=== PATIENT | female | born 1980 | race Caucasian/White ===

== ENCOUNTER 2017-10-02 00:03 | Inpatient (IN) | payer MEDICAID ==
[~2017-10-02] VITALS: Ht 154.9 cm; Wt 95.9 kg
[2017-10-02 00:11] VITALS: BP 131/74
--- NOTE | 2017-10-02 00:21 | NUR ---
PT AMBULATED TO ER BED 01
--- NOTE | 2017-10-02 00:25 | NUR ---
PATIENT PRESENTS TO ED WITH LOWER BACK PAIN X1 WEEK. PT DENIES N/V/D; SKIN IS PINK/WARM/DRY; AAOX4 WITH EVEN AND STEADY GAIT; LUNGS CLEAR BL; HR EVEN AND REGULAR; PT DENIES ANY FEVER, CP, SOB, OR COUGH AT THIS TIME; PATIENT STATES PAIN OF 9/10 AT THIS TIME; VSS; PATIENT POSITIONED FOR COMFORT; HOB ELEVATED; BEDRAILS UP X1; BED DOWN. ER MD MADE AWARE OF PT STATUS.
[2017-10-02] MEDS ORDERED: KETOROLAC 60 MG/2 ML VIAL IM ONE (00:50)
[2017-10-02 01:16] LABS: APPEARANCE,URINE HAZY (CLEAR); BILIRUBIN,URINE 1+ (NEGATIVE); BLOOD, URINE 2+ (NEGATIVE); COLOR,URINE YELLOW (YELLOW); LEUKOCYTE ESTERASE ,URINE TRACE (NEGATIVE); NITRITE, URINE NEGATIVE (NEGATIVE); PH,URINE 5.5 (5.0-9.0); UGLUCOSE NEGATIVE (NEGATIVE)
[2017-10-02 01:30] LABS: BASOPHILS # (AUTO) 0.1 K/uL (0.00-0.22); BASOPHILS % (AUTO) 0.8 % (0.0-2.0); EOSINOPHILS # (AUTO) 0.6 K/uL (0-0.4); EOSINOPHILS % (AUTO) 7.3 % (0.0-4.0); HEMATOCRIT 39.4 % (36-48); LYMPHOCYTES # (AUTO) 2.5 K/uL (2.5-16.5); LYMPHOCYTES % (AUTO) 30.8 % (20.5-51.1); MEAN CORPUSCULAR HEMOGLOBIN 27 pg (27-31); MEAN CORPUSCULAR HGB CONC 33 g/dL (33-37); MEAN CORPUSCULAR VOLUME 82.8 fL (80-94); MONOCYTES # (AUTO) 0.6 K/uL (0.8-1.0); MONOCYTES % (AUTO) 6.9 % (1.7-9.3); NEUTROPHILS # (AUTO) 4.4 K/uL (1.8-7.7); NEUTROPHILS % (AUTO) 54.2 % (42.2-75.2); PLATELET COUNT (AUTO) 463 K/uL (140-450); RED BLOOD CELL COUNT(AUTO) 4.76 MIL/uL (4.20-5.40); RED CELL DISTRIBUTION WIDTH 14.3 % (11.6-13.7); WHITE BLOOD COUNT (AUTO) 8.1 K/uL (4.8-10.8)
[2017-10-02 01:35] LABS: RBC,URINE 0-5 (RARE) /HPF (0-5); WBC,URINE 0-5 (RARE) /HPF (0-5)
[2017-10-02 01:47] LABS: CARBON DIOXIDE 27.1 mmol/L (21-32); CREATININE 0.9 mg/dL (0.6-1.3); POTASSIUM 3.1 mmol/L (3.5-5.1)
[2017-10-02 01:50] LABS: PROTHROMBIN TIME 10.6 secs (10.8-13.4)
[2017-10-02 01:53] LABS: ALBUMIN 3.1 g/dL (3.4-5.0); TOTAL BILIRUBIN 0.3 mg/dL (0.0-1.0)
--- NOTE | 2017-10-02 02:20 | NUR ---
PATIENT TO CT
[2017-10-02] MEDS ORDERED: KETOROLAC 15 MG/ML VIAL IVP PRN (02:25)
[2017-10-02] MEDS ORDERED: ACETAMINOPHEN 325 MG TAB PO PRN (02:25)
[2017-10-02 02:51] LABS: BARBITURATE, URINE NEG. ng/ml (NEG <=200); BENZODIAZEPINE, URINE NEG. ng/mL (NEG <=200); CANNABINOID, URINE NEG. ng/mL (NEG <=50); COCAINE, URINE NEG. ng/mL (NEG <=300); OPIATE, URINE NEG. ng/mL (NEG <=2000); PHENCYCLIDINE SCREEN,URINE NEG. ng/mL (NEG <=25)
[2017-10-02] MEDS: NACL 0.9% 1,000 ML IV SCH ×2 (03:04→17:33)
[2017-10-02 03:07] LABS: CHOL/HDL RATIO 4.4 (1-4.5); FREE T4 (FREE THYROXINE) 1.03 ng/dL (0.76-1.46); MAGNESIUM 2.1 mg/dL (1.8-2.4); PHOSPHORUS 4.4 mg/dL (2.5-4.9); THYROID STIMULATING HORMONE 1.88 uIU/mL (0.34-3.74)
--- NOTE | 2017-10-02 03:07 | NUR ---
Patient appears to be resting comfortably in bed. Vital Signs within normal limits. Respirations even and unlabored.
[2017-10-02 04:30] VITALS: BP 101/62
--- NOTE | 2017-10-02 04:30 | NUR ---
ADMITTED PATIENT TO THE TELE UNIT, PATIENT AWAKE ALERT ORIENTED X4, NO S/S OF DISTRESS NOTED, RESPIRATION EVEN AND UNLABORED, ON ROOM AIR. PATIENT SPEAKS CITIZEN OF [place], BUT REFUSED TO USE BLUE PHONE AND STATED," MY DAUGHTER CAN TRANSLATE FOR ME." TELE MONITOR PLACED ON PATIENT, IV PATENT AND INTACT, PLAN OF CARE DISCUSSED, PATIENT VERBALIZED UNDERSTANDING. CALL LIGHT WITHIN REACH, SAFETY MEASURE ENSURED, WILL CONTINUE TO MONITOR.
--- NOTE | 2017-10-02 06:49 | NUR ---
PATIENT HAS BEEN SCREENED AND CATEGORIZED MODERATE NUTRITION RISK. PATIENT WILL BE SEEN WITHIN 3-5 DAYS OF ADMISSION. 10/04/17-10/06/[address]
--- NOTE | 2017-10-02 07:26 | NUR ---
ENDORSED PLAN OF CARE TO DAY SHIFT RN, PATIENT RESTING IN BED, IN STABLE CONDITION.
--- NOTE | 2017-10-02 07:27 | NUR ---
RECEIVED REPORT FROM PM NURSE AT BEDSIDE. PT SLEEPING, NO SIGN OF DISTRESS. ALL SAFETY MEASURE IN PLACE . WILL CONTINUE TO MONITOR PT.
[2017-10-02 08:00] VITALS: BP 100/69
[2017-10-02] MEDS: DOCUSATE SODIUM 100 MG GELCAP PO SCH ×2 (09:23→21:11)
[2017-10-02] MEDS ORDERED: FUROSEMIDE 40 MG/4 ML VIAL IVP SCH (09:30)
[2017-10-02] MEDS ORDERED: POTASSIUM CHLORIDE 10 MEQ TABER PO SCH (09:31)
[2017-10-02] MEDS: LEVOFLOXACIN 750 MG/D5W PREMIX 150 ML IV SCH (10:05)
--- NOTE | 2017-10-02 11:07 | NUR ---
CALLED CT TO INFORM THAT CONSENT FOR CT WITH CONTRAST IS READY. ABX INFUSING , WILL BE HERE IN 30 MINUTES. PT AT BEDSIDE. LYING ON BED. NO SIGN OF DISTRESS . WILL CONTINUE TO MONITOR.
--- NOTE | 2017-10-02 11:44 | NUR ---
PAGED DR MISHRA ABOUT PT CT REPORT REGARING THORACENTESIS PROCEDURE. WAITING RECEIVER STOCKER FROM ,
--- NOTE | 2017-10-02 11:47 | NUR ---
PT WENT FOR CT CHEST WITH CONTRAST WITH TECH ON WHEEL CHAIR. DISCONNECTED HER IV.
[2017-10-02 12:00] VITALS: BP 113/67
--- NOTE | 2017-10-02 12:10 | NUR ---
PAGED DR MISHRA AGAIN TO INFORM ABOUT THE THORACENTESIS PROCEDURE CT RESULT.
--- NOTE | 2017-10-02 12:17 | NUR ---
RESIDENT INFORMED ABOUT NOT ENOUGH FLUID FOR THORACENTESIS PROCEDURE.
--- NOTE | 2017-10-02 13:00 | NUR ---
CHECKED ON PT. PT LYING BACK ON BED, LOOKING AT PHONE. NO DISTRESSED NOTED. PT STABLE. ALL SAFETY MEASURE IN PL;[place]. WILL CONTINUE TO MONITOR.
[2017-10-02 15:35] LABS: ALBUMIN 2.8 g/dL (3.4-5.0); ANION GAP 12.1 (8-16); ASPARTATE AMINOTRANSFERASE 20 U/L (15-37); CARBON DIOXIDE 27.8 mmol/L (21-32); CHLORIDE 101 mmol/L (98-107); CREATININE 0.8 mg/dL (0.6-1.3); GFR ARICAN-AMERICAN 105 mL/min (>90); GLUCOSE 90 mg/dL (74-106); POTASSIUM 3.9 mmol/L (3.5-5.1); SODIUM SERUM 137 mmol/L (136-145); TOTAL BILIRUBIN 0.4 mg/dL (0.0-1.0); UREA NITROGEN, BLOOD 10 mg/dL (7-18)
[2017-10-02 16:00] VITALS: BP 106/47
--- NOTE | 2017-10-02 16:00 | NUR ---
PT IV INFUSING WELL. PT HAS NO PAIN, NO DISTRESS NOTED. WILL CONTINUE TO MONITOR PT.
--- NOTE | 2017-10-02 19:30 | NUR ---
ENDORSED PT TO PM NURSE FOR CONTINUITY OF CARE. PT FAMILY AT BEDSIDE. PT STABLE .
--- NOTE | 2017-10-02 19:35 | NUR ---
RECEIVED REPORT FROM DAY SHIFT, PATIENT RESTING IN BED, NO S/S OF DISTRESS NOTED. IV PATENT AND INTACT, INFUSING NS AT 80ML/HR. PLAN OF CARE DISCUSSED, PATIENT VERBALIZED UNDERSTANDING, CALL LIGHT WITHIN REACH, SAFETY MEASURE ENSURED, WILL CONTINUE TO MONITOR.
[2017-10-02 20:00] VITALS: BP 118/78
--- NOTE | 2017-10-02 21:20 | NUR ---
BACK PAIN 6/10, PAIN MEDICATION GIVEN ORDERED. PATIENT TOLERATED WELL. NO S/S OF DISTRESS NOTED, RESPIRATION EVEN AND UNLABORED, CALL LIGHT WITHIN REACH, SAFETY MEASURE ENSURED, WILL CONTINUE TO MONITOR.
--- NOTE | 2017-10-02 23:50 | NUR ---
PATIENT WAS SLEEPING, EASY TO AROUSE, VITAL SIGNS STABLE, NO S/S OF DISTRESS NOTED, CALL LIGHT WITHIN REACH, SAFETY MEASURE ENSURED, WILL CONTINUE TO MONITOR.
[2017-10-03] VITALS: BP 117/75
--- NOTE | 2017-10-03 03:13 | NUR ---
PATIENT IS SLEEPING, NO S/S OF DISTRESS NOTED, RESPIRATION EVEN AND UNLABORED, ON ROOM AIR. CALL LIGHT WITHIN REACH, SAFETY MEASURE ENSURED, WILL CONTINUE TO MONITOR.
[2017-10-03 04:00] VITALS: BP 101/55
[2017-10-03] MEDS: NACL 0.9% 1,000 ML IV SCH ×2 (05:14→18:46)
--- NOTE | 2017-10-03 06:10 | NUR ---
NO CHANGE IN CONDITION, PATIENT IS SLEEPING, NO S/S OF DISTRESS NOTED, RESPIRATION EVEN AND UNLABORED, ON ROOM AIR. CALL LIGHT WITHIN REACH, SAFETY MEASURE ENSURED, WILL CONTINUE TO MONITOR.
[2017-10-03 07:26] LABS: BASOPHILS % (AUTO) 0.6 % (0.0-2.0); EOSINOPHILS # (AUTO) 0.5 K/uL (0-0.4); EOSINOPHILS % (AUTO) 6.2 % (0.0-4.0); HEMATOCRIT 34.9 % (36-48); HEMOGLOBIN 11.6 g/dL (12.0-16.0); LYMPHOCYTES # (AUTO) 2.1 K/uL (2.5-16.5); LYMPHOCYTES % (AUTO) 26.8 % (20.5-51.1); MEAN CORPUSCULAR HEMOGLOBIN 27 pg (27-31); MEAN CORPUSCULAR HGB CONC 33 g/dL (33-37); MEAN CORPUSCULAR VOLUME 82.5 fL (80-94); MONOCYTES # (AUTO) 0.5 K/uL (0.8-1.0); MONOCYTES % (AUTO) 6.9 % (1.7-9.3); NEUTROPHILS # (AUTO) 4.6 K/uL (1.8-7.7); NEUTROPHILS % (AUTO) 59.5 % (42.2-75.2); PLATELET COUNT (AUTO) 399 K/uL (140-450); RED BLOOD CELL COUNT(AUTO) 4.23 MIL/uL (4.20-5.40); RED CELL DISTRIBUTION WIDTH 13.9 % (11.6-13.7); WHITE BLOOD COUNT (AUTO) 7.7 K/uL (4.8-10.8)
[2017-10-03 07:33] LABS: ALBUMIN 2.5 g/dL (3.4-5.0); ANION GAP 10.9 (8-16); CARBON DIOXIDE 25.5 mmol/L (21-32); CREATININE 0.8 mg/dL (0.6-1.3); PHOSPHORUS 3.8 mg/dL (2.5-4.9); POTASSIUM 3.4 mmol/L (3.5-5.1); TOTAL BILIRUBIN 0.3 mg/dL (0.0-1.0)
--- NOTE | 2017-10-03 07:33 | NUR ---
ENDORSED PLAN OF CARE TO DAY SHIFT, PATIENT RESTING IN BED, IN STABLE CONDITION.
--- NOTE | 2017-10-03 07:34 | NUR ---
RECEIVED REPORT FROM NURSE. PT SLEEPING AT THIS TIME. UPDATED BOARD. IV SITE PATENT. IV INFUSING WELL. CALL LIGHT WITHIN REACH WILL CONTINUE TO MONITOR PT.
[2017-10-03 07:55] LABS: PROTHROMBIN TIME 10.3 secs (10.8-13.4)
[2017-10-03 08:00] VITALS: BP 118/63
[2017-10-03] MEDS: DOCUSATE SODIUM 100 MG GELCAP PO SCH ×2 (09:56→21:28)
[2017-10-03] MEDS ORDERED: POTASSIUM CHLORIDE 10 MEQ TABER PO SCH (10:01)
[2017-10-03] MEDS: LEVOFLOXACIN 750 MG/D5W PREMIX 150 ML IV SCH (10:02)
--- NOTE | 2017-10-03 10:10 | NUR ---
ADMINISTERED MEDS ORDERED. PT TOLERATED WELL. NO SIGN OF DISTRESS. PT SAYS SHE HAD BM TODAY. LEVOFLOX IVPB INFUSING , PT TOLERATING WELL. CALL LIGHT WITHIN REACH. WILL CONTINUE TO MONITOR PT.
--- NOTE | 2017-10-03 11:45 | NUR ---
CHECKED ON PT. PT SAYS HAS NO APPETITE. ASKED IF SHE LIKE OTHER FOOD. SAYS OK FOR NOW. ALL SAFETY MEASURE IN PLACE . WILL CONTINUE TO MONITOR PT.
[2017-10-03 12:00] VITALS: BP 113/65
--- NOTE | 2017-10-03 13:00 | NUR ---
CHECKED ON PT. PT SLEEPING AT THIS TIME. NO SIGN OF DISTRESS. WILL CONTINUE TO MONITOR PT.
[2017-10-03 16:04] VITALS: BP 107/62
--- NOTE | 2017-10-03 18:30 | NUR ---
ADMINISTERED 0.9 NS ORDERED. FAMILY AT BEDSIDE. PT HAS NOT EATEN DINNER YET. NO SIGN OF DISTRESS. ALL SAFETY MEASURE IN PLACE. WILL CONTINUE TO MONITOR PT.
--- NOTE | 2017-10-03 19:10 | NUR ---
ENDORSED PT TO PM NURSE FOR THE CONTINUITY OF CARE AT BEDSIDE. PT WITH FAMILY MEMBER. IV INFUSING WELL. NO SIGN OF DISTRESS. PT STABLE AT THIS TIME.
--- NOTE | 2017-10-03 19:20 | NUR ---
RECEIVED REPORT FROM DAY SHIFT, PATIENT RESTING IN BED, NO S/S OF DISTRESS NOTED. IV PATENT AND INTACT, INFUSING NS AT 80ML/HR. NOTED DINNER ON THE TABLE, ASKED PATIENT IF SHE NEED A SANDWICH, BUT PATIENT SAID, " I ATE [employer]BUR[employer]." PLAN OF CARE DISCUSSED, PATIENT VERBALIZED UNDERSTANDING, CALL LIGHT WITHIN REACH, SAFETY MEASURE ENSURED, WILL CONTINUE TO MONITOR
[2017-10-03 19:59] VITALS: BP 126/78
--- NOTE | 2017-10-03 22:44 | NUR ---
PATIENT RESTING IN BED, WATCHING TV ON CELLPHONE, NO S/S OF DISTRESS NOTED, RESPIRATION EVEN AND UNLABORED, ON ROOM AIR. CALL LIGHT WITHIN REACH, SAFETY MEASURE ENSURED, WILL CONTINUE TO MONITOR.
[2017-10-04] VITALS: BP 123/61
--- NOTE | 2017-10-04 00:45 | NUR ---
VITAL SIGNS STABLE, NO S/S OF DISTRESS NOTED, RESPIRATION EVEN AND UNLABORED, ON ROOM AIR. CALL LIGHT WITHIN REACH, SAFETY MEASURE ENSURED, WILL CONTINUE TO MONITOR.
--- NOTE | 2017-10-04 02:48 | NUR ---
PATIENT IS SLEEPING, NO S/S OF DISTRESS NOTED, RESPIRATION EVEN AND UNLABORED, ON ROOM AIR. CALL LIGHT WITHIN REACH, SAFETY MEASURE ENSURED, WILL CONTINUE TO MONITOR.
[2017-10-04 04:00] VITALS: BP 99/41
--- NOTE | 2017-10-04 04:15 | NUR ---
PATIENT WAS SLEEPING, BUT EASY TO AROUSE, VITAL SIGNS STABLE, NO S/S OF DISTRESS NOTED, RESPIRATION EVEN AND UNLABORED, ON ROOM AIR. CALL LIGHT WITHIN REACH, SAFETY MEASURE ENSURED, WILL CONTINUE TO MONITOR.
[2017-10-04 06:22] LABS: BASOPHILS % (AUTO) 0.5 % (0.0-2.0); EOSINOPHILS # (AUTO) 0.5 K/uL (0-0.4); EOSINOPHILS % (AUTO) 7.2 % (0.0-4.0); HEMATOCRIT 34.9 % (36-48); HEMOGLOBIN 11.6 g/dL (12.0-16.0); LYMPHOCYTES % (AUTO) 30.8 % (20.5-51.1); MEAN CORPUSCULAR HEMOGLOBIN 27 pg (27-31); MEAN CORPUSCULAR HGB CONC 33 g/dL (33-37); MEAN CORPUSCULAR VOLUME 82.4 fL (80-94); MONOCYTES # (AUTO) 0.6 K/uL (0.8-1.0); MONOCYTES % (AUTO) 9.2 % (1.7-9.3); NEUTROPHILS # (AUTO) 3.4 K/uL (1.8-7.7); NEUTROPHILS % (AUTO) 52.3 % (42.2-75.2); PLATELET COUNT (AUTO) 395 K/uL (140-450); RED BLOOD CELL COUNT(AUTO) 4.24 MIL/uL (4.20-5.40); RED CELL DISTRIBUTION WIDTH 13.8 % (11.6-13.7); WHITE BLOOD COUNT (AUTO) 6.6 K/uL (4.8-10.8)
[2017-10-04] MEDS: NACL 0.9% 1,000 ML IV SCH ×2 (06:32→06:41)
--- NOTE | 2017-10-04 06:42 | NUR ---
NEW NORMAL SALINE STARTED, PATIENT IS SLEEPING, NO S/S OF DISTRESS NOTED, RESPIRATION EVEN AND UNLABORED, WILL CONTINUE TO MONITOR.
[2017-10-04 06:47] LABS: ALBUMIN 2.6 g/dL (3.4-5.0); ANION GAP 10.5 (8-16); CARBON DIOXIDE 23.9 mmol/L (21-32); CREATININE 0.8 mg/dL (0.6-1.3); MAGNESIUM 2.1 mg/dL (1.8-2.4); PHOSPHORUS 3.8 mg/dL (2.5-4.9); POTASSIUM 3.4 mmol/L (3.5-5.1); PROTHROMBIN TIME 10.7 secs (10.8-13.4); TOTAL BILIRUBIN 0.4 mg/dL (0.0-1.0)
--- NOTE | 2017-10-04 07:15 | NUR ---
RECEIVED PATIENT REPORT AT BEDSIDE. PATIENT ASLEEP BUT AROUSABLE. NO S/S OF DISTRESS. NO C/O PAIN AT THIS TIME. PATIENT ON TELE MONITORING. BED LOWERED WITH CALL LIGHT WITHIN REACH. WILL CONTINUE TO MONITOR.
--- NOTE | 2017-10-04 07:30 | NUR ---
ENDORSED PLAN OF CARE TO DAY SHIFT, PATIENT RESTING IN BED, IN STABLE CONDITION.
[2017-10-04 08:00] VITALS: BP 113/63
[2017-10-04] MEDS ORDERED: POTASSIUM CHLORIDE 10 MEQ TABER PO SCH (09:06)
[2017-10-04] MEDS: LEVOFLOXACIN 750 MG/D5W PREMIX 150 ML IV SCH (09:59)
[2017-10-04] MEDS: DOCUSATE SODIUM 100 MG GELCAP PO SCH (10:00)
--- NOTE | 2017-10-04 10:31 | NUR ---
PATIENT HAS BEEN SCREENED AND CATEGORIZED LOW NUTRITION RISK. PATIENT WILL BE SEEN WITHIN 7 DAYS OF ADMISSION. 10/06/[address]
[2017-10-04 12:00] VITALS: BP 98/56
--- NOTE | 2017-10-04 16:41 | NUR ---
Apartment Property Manager Note: I met with patient at bedside. Patient French speaking. She reported she prefers to be discharged home and be referred to a formerly [facility] hospital for outpatient services/evaluation/treatment than to be transfer to another acute hospital for higher level of care, director of case management/psychosocial rehabilitation counselor Krista salazar. I provided patient with information of process of [facility] Outpatient Referral and verified her home address and phone number listed on face sheet. I informed her a referral will be completed and faxed to [facility]. I explained to her [facility] ([facility]) will review her information and provide her with appointment information. She verbalized understanding. I completed and faxed [facility] Outpatient Referral, phone number , fax .
[2017-10-04] MEDS ORDERED: IBUP-2217 PO (16:49)
[2017-10-04] MEDS ORDERED: IBUPROFEN 800 MG TAB PO PRN (16:50)
[2017-10-04 17:00] VITALS: BP 127/77
[2017-10-06 06:13] LABS: ANTI DOUBLE STRANDED DNA AB <1 IU/mL (0-9); ANTI-NUCLEAR ANTIBODY,DIRECT Negative (Negative)
== END 2017-10-04 17:20 | disposition home or self-care (01) | DRG 139 ==
LOC: MED 00:03 → MTU 02:24 → MMU 04:04
PROVIDERS: ADMIT General Practice; ATTEND General Practice
DX: J18.9 Pneumonia, unspecified organism (principal); E43 Unspecified severe protein-calorie malnutrition; J90 Pleural effusion, not elsewhere classified; E87.1 Hypo-osmolality and hyponatremia; E66.01 Morbid (severe) obesity due to excess calories; E87.6 Hypokalemia; E78.5 Hyperlipidemia, unspecified; Z68.39 Body mass index [BMI] 39.0-39.9, adult; Z87.440 Personal history of urinary (tract) infections
CPT/HCPCS: 36415; 71260; 74022; 76604; 80053; 80305; 81001; 81025; 82150; 82164; 82945; 83036; 83605; 83615; 83690; 83735; 83880; 84100; 84157; 84439; 84443; 84484; 85025; 85610; 85651; 85730; 86038; 86430; 87040; 87081; 87086; 89051; 93005; 96372; 99285; J1885; J1940; J1956; J7030; Q0092; Q9967

== ENCOUNTER 2017-10-17 22:39 | Emergency (ER) | payer MEDICAID ==
[~2017-10-17] VITALS: Ht 154.9 cm; Wt 90.7 kg
[~2017-10-17 22:39] MED LIST: IBUP-2217 PO
[2017-10-17 22:55] VITALS: BP 117/76
--- NOTE | 2017-10-17 22:57 | NUR ---
TO BED # 11 AMBULATORY, REPORT GIVEN TO NELSON CONROY.
--- NOTE | 2017-10-17 23:00 | NUR ---
37/F CAME IN ED WITH FAMILY, C/O CONSTANT SHARP R LOWER BACK PAIN, NONRADIATING, X3 DAYS. PT DENIES TRAUMA. PT DENIES FEVER, CP, SOB, COUGH, N/V/D, DYSURIA; SKIN IS INTACT, PINK/WARM/DRY; AAOX4, PERRL, WITH EVEN AND STEADY GAIT; LUNGS CLEAR BL, BREATHING UNLABORED; HR EVEN AND REGULAR, BL PERIPHERAL PULSES PRESENT; BS ACTIVE X4, NO TENDERNESS TO PALPATION; VSS; PATIENT POSITIONED FOR COMFORT; HOB ELEVATED; BEDRAILS UP X2; BED DOWN.
[2017-10-18] MEDS ORDERED: KETOROLAC 30 MG/ML VIAL IM ONE (00:40)
[2017-10-18 02:45] VITALS: BP 131/80
--- NOTE | 2017-10-18 02:45 | NUR ---
Patient discharged with v/s stable. Written and verbal after care instructions given and explained. Patient alert, oriented and verbalized understanding of instructions. Ambulatory with steady gait. All questions addressed prior to discharge. ID band removed. Patient advised to follow up with PMD. Rx of NARCO, AUGMENTIN, NAPROSYN given. Patient educated on indication of medication including possible reaction and side effects. Opportunity to ask questions provided and answered.
== END 2017-10-18 02:45 | disposition home or self-care (01) ==
LOC: MED 22:39
DX: R09.1 Pleurisy (principal); Z79.899 Other long term (current) drug therapy
CPT/HCPCS: 71046; 81002; 81025; 96372; 99284; J1885; Q0092; 99283

== ENCOUNTER 2017-12-12 19:20 | Emergency (ER) | payer MEDICAID ==
[~2017-12-12] VITALS: Ht 154.9 cm; Wt 89.8 kg
[2017-12-12 19:36] VITALS: BP 109/66
--- NOTE | 2017-12-12 19:39 | NUR ---
TO BED #3 AMBULATORY, REPORT GIVEN TO EDGAR CONROY
--- NOTE | 2017-12-12 19:50 | NUR ---
Patient presents to ED with complaints of right lateral side pain for the past three days. Patient states she was admitted to [facility] and had a chest tube removed about 3 weeks ago. Pt states she did not have pain when it was removed and had a sudden onset of pain 3 days ago. Incision site appears dry, clear, no redness, no drainage noted. Lungs clear bilaterally in all x5 lobes. Pt denies N/V/D, denies fever or chills. Pt reports swelling to incision site, tender to palpation. Pt in a gown, provided with warm blanket, pillow offered for comfort. Pt placed in position of comfort. VSS. Awaiting exam from ERMD.
[2017-12-12] MEDS ORDERED: KETOROLAC 60 MG/2 ML VIAL IM ONE (20:35)
--- NOTE | 2017-12-12 20:57 | NUR ---
Dr. Osei evaluating patient at bedside.
[2017-12-12] MEDS ORDERED: MORPHINE SULFATE 4 MG/ML SYR IVP ONE (21:05)
[2017-12-12] MEDS ORDERED: MORPHINE SULFATE 4 MG/ML SYR IM ONE (21:05)
--- NOTE | 2017-12-12 21:10 | NUR ---
Shlomo barillas in [facility] - 12/12/[address] Osei evaluating patient at bedside.
--- NOTE | 2017-12-12 21:10 | NUR ---
X-Ray at bedside.
--- NOTE | 2017-12-12 21:59 | NUR ---
Patient is resting with eyes closed and appears comfortably in bed. Family at the bedside. VSS. NAD noted. Pt awaiting pending results. Pain improved.
[2017-12-12 22:15] VITALS: BP 109/58
--- NOTE | 2017-12-12 22:15 | NUR ---
IV removed, catheter intact and site benign. Applied folded 4x4 gauze and tape to stop bleeding.
--- NOTE | 2017-12-12 22:15 | NUR ---
Patient discharged with v/s stable. Written and verbal after care instructions given and explained. Patient alert, oriented and verbalized understanding of instructions. Ambulatory with steady gait. All questions addressed prior to discharge. ID band removed. Patient advised to follow up with PMD. Rx of [place] 5mg-325mg, Cipro 500mg, Azithromycin given. Patient educated on indication of medication including possible reaction and side effects. Opportunity to ask questions provided and answered.
== END 2017-12-12 22:15 | disposition home or self-care (01) ==
LOC: MED 19:20
DX: N39.0 Urinary tract infection, site not specified (principal); J18.9 Pneumonia, unspecified organism; Z79.899 Other long term (current) drug therapy
CPT/HCPCS: 71045; 81002; 81025; 96372; 96374; 99284; J1885; J2270; Q0092

== ENCOUNTER 2017-12-13 23:59 | Emergency (ER) | payer MEDICAID ==
[~2017-12-13] VITALS: Ht 154.9 cm; Wt 89.8 kg
[2017-12-14 00:03] VITALS: BP 109/75
--- NOTE | 2017-12-14 00:09 | NUR ---
PT AMBULATED TO ROOM 7 WITH VSS.
--- NOTE | 2017-12-14 00:33 | NUR ---
37YO F TO ER W/C/O RIGHT SIDED RIB PAIN SINCE 10 AM. PT STATES RIGHT LUNG DRAINED AT [facility] X3 WEEKS AGO. PT CONTINES TO HAVE CONSTANT STABBING SEVERE 10/10 PAIN TO RIGHT RIBS. PT WAS SEEN HERE AT [facility]. PERSCRIBED PAIN MEDICATIONS NOT HELPFUL. NO SOB OR DYSPNEA AT THIS TIME. PT DENIES ANY N/V/D, CP, SOB, COUGH OR FEVER AT THIS TIME. WILL CONTINUE TO MONITOR. ER MADE AWARE
--- NOTE | 2017-12-14 00:50 | NUR ---
Patient being evaluated by physician at bedside.
[2017-12-14] MEDS ORDERED: HYDROcodone/APAP 5/325 MG 1 TAB TAB PO ONE (01:25)
[2017-12-14] MEDS ORDERED: KETOROLAC 30 MG/ML VIAL IM ONE (01:25)
--- NOTE | 2017-12-14 01:37 | NUR ---
TORADOL ORDERED IM, DR BARRERA STATES OKAY TO GIVE IV PUSH.
--- NOTE | 2017-12-14 02:29 | NUR ---
Patient discharged with v/s stable. Written and verbal after care instructions given and explained. Patient alert, oriented and verbalized understanding of instructions. Ambulatory with steady gait. All questions addressed prior to discharge. ID band removed. Patient advised to follow up with PMD. Rx of LIDODERM, NAPROSYN given. Patient educated on indication of medication including possible reaction and side effects. Opportunity to ask questions provided and answered.
[2017-12-14 02:30] VITALS: BP 112/66
== END 2017-12-14 02:30 | disposition home or self-care (01) ==
LOC: MED 23:59
DX: R09.1 Pleurisy (principal)
CPT/HCPCS: 71045; 81002; 81025; 96374; 99284; J1885; Q0092

== ENCOUNTER 2018-07-07 15:23 | Emergency (ER) | payer MEDICAID ==
[~2018-07-07] VITALS: Ht 154.9 cm; Wt 102.1 kg
[2018-07-07 15:30] VITALS: BP 120/94
--- NOTE | 2018-07-07 15:39 | NUR ---
PT AMBULATED TO BED 9
--- NOTE | 2018-07-07 15:39 | NUR ---
38 Y F BIB SELF C/O RIGHT SIDED BACK PAIN THAT RADIATES TO RIGHT RIBCAGE X 2 DAYS AGO PT REPORTS SHE HAD AN "OPERATION ON HER RIGHT LUNG" 10/2017. LUNG SOUNDS CLEAR BILATERALLY 8/10 PAIN, CONSTANT, SHARP PAIN. PT DOES REPORT SOME COUGH X 1 WEEK. HX: LUNG OPERATION RX: DENIES
[2018-07-07 17:45] VITALS: BP 125/72
--- NOTE | 2018-07-07 17:45 | NUR ---
Patient discharged with v/s stable. Written and verbal after care instructions given and explained. Patient alert, oriented and verbalized understanding of instructions. Ambulatory with steady gait. All questions addressed prior to discharge. ID band removed. Patient advised to follow up with PMD. Rx of ALBUTEROL, AZITHROMYCIN, MOTRIN given. Patient educated on indication of medication including possible reaction and side effects. Opportunity to ask questions provided and answered.
== END 2018-07-07 17:45 | disposition home or self-care (01) ==
LOC: MED 15:23
DX: J98.01 Acute bronchospasm (principal); R10.9 Unspecified abdominal pain; Z98.890 Other specified postprocedural states
CPT/HCPCS: 71046; 99283

== ENCOUNTER 2019-05-12 18:18 | Emergency (ER) | payer MEDICAID ==
[~2019-05-12] VITALS: Ht 152.4 cm; Wt 101.6 kg
[2019-05-12 18:26] VITALS: BP 118/86
--- NOTE | 2019-05-12 18:28 | NUR ---
AMBULATES BACK TO THE LOBBY
--- NOTE | 2019-05-12 19:01 | NUR ---
PT AMBULATED TO ER CHC
--- NOTE | 2019-05-12 19:45 | NUR ---
39 Y/O FEMALE PRESNTS TO ED, C/O RIGHT EYE PAIN X1 WEEK. PT STATES PAIN IS 8/10. PT DENIES ANY TRAUMA. PT STATES ITCHING AND DISCOMFORT ALONG WITH BLURRY VISION ON AFFECTED EYE. PT STATES HAVING CLEAR TEARS. PT ABLE TO AMBULATE WITH STEADY GAIT. PT VSS ERMD AWARE. WILL CONTINUE TO MONITOR.
[2019-05-12] MEDS ORDERED: FLUORESCEIN OPTH STRIP 1 MG ONE (19:47)
[2019-05-12] MEDS: TETRACAINE HCL/PF 0.5% OPTH 4 ML BTL OP ONE (19:52)
--- NOTE | 2019-05-12 20:17 | NUR ---
PT DISCHARGED WITH PAPERWORK. EDUCATED PT REGARDING MEDICATIONS AND D/C INSTRUCTIONS. PT VERBALIZED UNDERSTANDING OF TEACHING. TOLD PT TO FOLLOW UP WITH PCP AND WHEN TO RETURN TO ED. PT AT STABLE CONDITION. AMBULATES WITH STEADY GAIT. ALL QUESTIONS ANSWERED.
[2019-05-12 20:18] VITALS: BP 118/86
== END 2019-05-12 20:17 | disposition home or self-care (01) ==
LOC: MED 18:18
DX: S05.01XA Injury of conjunctiva and corneal abrasion without foreign body, right eye, initial encounter (principal); H10.9 Unspecified conjunctivitis; Z79.1 Long term (current) use of non-steroidal anti-inflammatories (NSAID); X58.XXXA Exposure to other specified factors, initial encounter; Y92.89 Other specified places as the place of occurrence of the external cause; Y93.89 Activity, other specified; Y99.8 Other external cause status
CPT/HCPCS: 99283

== ENCOUNTER 2019-07-10 15:46 | Emergency (ER) | payer MEDICAID ==
[~2019-07-10] VITALS: Ht 154.9 cm; Wt 90.7 kg
[2019-07-10 16:15] VITALS: BP 129/94
[2019-07-10] MEDS ORDERED: ALBUTEROL SULFATE/IPRATROPIU 3 ML SOL IH ONE (16:20)
--- NOTE | 2019-07-10 16:31 | NUR ---
PT AMBULATED TO ER BED 09
--- NOTE | 2019-07-10 16:42 | NUR ---
Breathing treatment administered by respiratory therapist at bedside.
[2019-07-10] MEDS ORDERED: predniSONE 20 MG TAB PO ONE (16:55)
--- NOTE | 2019-07-10 16:57 | NUR ---
39 Y/O FEMALE C/O DRY COUGH FOR TWO WEEKS. DENIES SOB/CP. RESP EVEN AND UNLABORED. LUNG SOUNDS CLEAR IN BILAT LOBES. DENIES FEVER/CHILLS, N/V/D. CAP REFILL <3. SKIN WARM/DRY/IN TACT. BOWEL SOUNDS NORMO ACTIVE. PT REPORTS RIB PAIN ALSO STARTING WITH COUGH, 5/10. NO PMH NKA
[2019-07-10 17:03] VITALS: BP 129/94
--- NOTE | 2019-07-10 17:03 | NUR ---
Patient discharged with v/s stable. Written and verbal after care instructions given and explained. Patient alert, oriented and verbalized understanding of instructions. Ambulatory with steady gait. All questions addressed prior to discharge. ID band removed. Patient advised to follow up with PMD. Rx of ALBUTEROL, PREDNISONE, AEROCHAMBER given. Patient educated on indication of medication including possible reaction and side effects. Opportunity to ask questions provided and answered.
== END 2019-07-10 17:03 | disposition home or self-care (01) ==
LOC: MED 15:46
DX: J98.01 Acute bronchospasm (principal); J90 Pleural effusion, not elsewhere classified; J45.909 Unspecified asthma, uncomplicated; Z98.890 Other specified postprocedural states; Z79.899 Other long term (current) drug therapy
CPT/HCPCS: 71045; 99283; J7512; 94640; Q0092

== ENCOUNTER 2019-10-24 19:49 | Emergency (ER) | payer MEDICAID ==
[~2019-10-24] VITALS: Ht 154.9 cm; Wt 103.9 kg
[2019-10-24 19:56] VITALS: BP 117/85
--- NOTE | 2019-10-24 20:01 | NUR ---
pt triaged and sent back to bob
--- NOTE | 2019-10-25 00:10 | NUR ---
PT TAKEN TO CHAIR C. AMBULATED WITH STEADY GAIT.
--- NOTE | 2019-10-25 00:15 | NUR ---
PT 39 Y/O FEMALE BIB SELF FOR C/O WALLACE X 3 DAYS. PT AAO X4. PT STATES SHE HAS 9/10 WALLACE THAT IS UNRELIVED BY OTC MEDICATION. PT STATES PAIN IS SHARP, THROBBING, AND CONTINOUS. PT STATES SHE HAS BLURRED VISION AND DIZZYNESS. PERRL 4MM BILAT BRISK. FACE SYMMETRICAL. HAND SENIOR IT AUDITOR STRONG AND EQUAL BILAT. VISION ACUITY TEST PERFORMED. R EYE: 20/25, L EYE: 20/25, BOTH EYES: 20/20. BED LOCKED AND IN LOWEST POSTION. MEDHX: NONE ALLERGIES: NKA
--- NOTE | 2019-10-25 00:31 | NUR ---
Dr. Ferreira examining patient.
--- NOTE | 2019-10-25 00:36 | NUR ---
PT AMBULATED TO RESTROOM TO PROVIDE UA.
[2019-10-25] MEDS ORDERED: PROCHLORPERAZINE 10 MG/2 ML VIAL IVP ONE (00:40)
[2019-10-25] MEDS ORDERED: KETOROLAC 15 MG/ML VIAL IVP ONE (00:40)
[2019-10-25] MEDS ORDERED: NACL 0.9% 1,000 ML IV ONE (00:40)
--- NOTE | 2019-10-25 00:50 | NUR ---
IV PLACED IN R WRIST 24G. PT DENIES PAIN AT SITE. BLOOD RETURN NOTED.
--- NOTE | 2019-10-25 00:57 | NUR ---
0.9% NS 1L STARTED BOLUS. COMPAZINE 10MG IVP AND TORADOL 15 MG IVP GIVEN IN R WRIST. IV SITE PATENT. NO C/O PAIN OR SWELLING AT SITE. PAIN CURETNLY 01/10 FOR WALLACE.
--- NOTE | 2019-10-25 01:58 | NUR ---
.PT STATES SHE FEELS MUCH BETTER WITH HEADACHE. WILL CONTINUE TO MONITOR
[2019-10-25 02:45] VITALS: BP 137/74
--- NOTE | 2019-10-25 02:45 | NUR ---
dPatient discharged with v/s stable. Written and verbal after care instructions ABOUT MIGRAINE HEADACHES given and explained. Patient alert, oriented and verbalized understanding of instructions. Ambulatory with steady gait. All questions addressed prior to discharge. ID band removed. Patient advised to follow up with PMD. Rx of VITAMIN B2, TYLENOL, AND MAGNESIUM GLUCONATE given. Patient educated on indication of medication including possible reaction and side effects. Opportunity to ask questions provided and answered.
== END 2019-10-25 02:45 | disposition home or self-care (01) ==
LOC: MED 19:49
DX: G43.719 Chronic migraine without aura, intractable, without status migrainosus (principal); R03.0 Elevated blood-pressure reading, without diagnosis of hypertension
CPT/HCPCS: 81002; 81025; 96374; 96375; 99284; J0780; J1885; J7030

== ENCOUNTER 2022-01-20 16:31 | Emergency (ER) | payer MEDICAID ==
--- NOTE | 2022-01-20 16:50 | NUR ---
PATIENT LEFT WITHOUT BEING SEEN BY DR. RAUSCH. NO FURTHER CARE PROVIDED FOR PATIENT.
== END 2022-01-20 16:50 | disposition left against medical advice (07) ==
LOC: MED 16:31
DX: R10.9 Unspecified abdominal pain (principal); Z53.21 Procedure and treatment not carried out due to patient leaving prior to being seen by health care provider

== ENCOUNTER 2022-11-10 17:42 | Emergency (ER) | payer MEDICAID ==
[~2022-11-10] VITALS: Ht 157.5 cm; Wt 110.2 kg
[2022-11-10 17:47] VITALS: BP 129/91; PULSE 79; RESP 19; TEMP 98.4; O2SAT 97
[2022-11-10] MEDS ORDERED: OLOP2.5D7 OP (18:16)
[2022-11-10] MEDS ORDERED: PRON INH (18:16)
[2022-11-10] MEDS ORDERED: BENZ200C4 PO (18:16)
[2022-11-10] MEDS ORDERED: ALBU0.0912 INH (18:16)
[2022-11-10 18:59] VITALS: RESP 19
[2022-11-10 19:00] VITALS: O2SAT 97
--- NOTE | 2022-11-10 19:04 | NUR ---
PATIENT PRESENTS TO ED WITH ABD PAIN PROVOKED WITH DRY COUGH. PT STATES SHES HAD THIS PAIN SINCE LAST NIGHT.PT STATES SHE BECOMES DIZZY WHEN SHE COUGHS. DENIES N/V/D; SKIN IS PINK/WARM/DRY; AAOX4 WITH EVEN AND STEADY GAIT; LUNGS CLEAR BL; HR EVEN AND REGULAR; PT DENIES ANY FEVER, CP, SOB, OR COUGH AT THIS TIME; PATIENT STATES PAIN OF 8/10 AT THIS TIME; VSS; PATIENT POSITIONED FOR COMFORT; PT IN LOBBY.
--- NOTE | 2022-11-10 19:06 | NUR ---
PT HAS BEEN SEEN BY PROVIDER. PT HAS BEEN TREATED FOR VIRAL INFECTION AND ASTHMA. Patient discharged with v/s stable. Written and verbal after care instructions given and explained. Patient verbalized understanding. Ambulatory with steady gait. All questions addressed prior to discharge. Advised to follow up with PMD.
[2022-11-10 19:07] VITALS: BP 129/91; PULSE 79; TEMP 98.4; O2SAT 19
--- NOTE | 2022-11-10 19:10 | NUR ---
The patient's care was reviewed and supervised by [place] [facility], RN.
== END 2022-11-10 19:06 | disposition home or self-care (01) ==
LOC: MED 17:42
DX: B34.9 Viral infection, unspecified (principal); J45.909 Unspecified asthma, uncomplicated; H10.10 Acute atopic conjunctivitis, unspecified eye; Z76.0 Encounter for issue of repeat prescription; Z79.899 Other long term (current) drug therapy
CPT/HCPCS: 99282